=== PATIENT | male | born 1990 | race Caucasian/White ===

== ENCOUNTER 2017-11-14 13:16 | Emergency (ER) | payer MEDICAID, OTHER ==
[~2017-11-14] VITALS: Ht 177.8 cm; Wt 68.0 kg
[~2017-11-14 13:16] MED LIST: ALBU6.7H INH; ALBU8.5H8 IH; ALBU8HFA PO; INHA1EAC68 MC; PRED20TA PO
[2017-11-14] MEDS ORDERED: ondansetron/PF 4mg/2ml inj IV ONE (13:35)
[2017-11-14] MEDS ORDERED: normal saline 1000ml 1,000 ML IV ONE (13:35)
[2017-11-14 13:59] LABS: BASOPHILS % (AUTO) 0 % (0-1); EOSINOPHILS # (AUTO) 0.1 X10'3 (0-0.9); EOSINOPHILS % (AUTO) 1.1 % (0-6); HEMATOCRIT 46.8 % (42.0-52.0); HEMOGLOBIN 16.4 g/dl (14.0-17.9); LYMPHOCYTES # (AUTO) 0.5 X10'3 (1.1-4.8); LYMPHOCYTES % (AUTO) 3.8 % (21-51); MEAN CORPUSCULAR HEMOGLOBIN 31.5 PG (27.0-31.0); MEAN CORPUSCULAR HGB CONC 35.1 % (33.0-36.5); MEAN PLATELET VOLUME 7.5 FL (7.4-10.4); MONOCYTES # (AUTO) 0.5 X10'3 (0-0.9); MONOCYTES % (AUTO) 3.8 % (2-12); NEUTROPHILS # (AUTO) 11.9 X10'3 (1.8-7.7); NEUTROPHILS % (AUTO) 91.3 % (42-75); PLATELET COUNT 301 X10'3 (140-440); RED CELL DISTRIBUTION WIDTH 12.6 % (11.5-14.5)
[2017-11-14 14:06] LABS: CLARITY,URINE CLEAR (Clear); COLOR,URINE YELLOW (Yellow); GLUCOSE, URINE NEGATIVE (Neg); KETONES,URINE 40 mg/dl (Neg); LEUKOCYTE ESTERASE ,URINE NEGATIVE (Neg); NITRITES, URINE NEGATIVE (Neg); OCCULT BLOOD,URINE NEGATIVE (Neg); PROTEIN,URINE NEGATIVE (Neg); UROBILINOGEN,URINE 0.2 E.U/dL (0.2-1.0)
[2017-11-14 14:07] LABS: PROTHROMBIN TIME 10.3 SECONDS (9.0-12.0)
[2017-11-14] MEDS ORDERED: LORazepam 2 mg/ml vial IV ONE (14:10)
[2017-11-14] MEDS ORDERED: ketorolac trometh. 30mg/ml inj. IV ONE (14:10)
[2017-11-14] MEDS ORDERED: metoclopramide 5 mg/ml inj IV ONE (14:10)
[2017-11-14 14:13] LABS: ALANINE AMINOTRANSFERASE 49 U/L (12-78); ALBUMIN 4.4 G/DL (3.4-5.0); ALBUMIN/GLOBULIN RATIO 1.3 (1.1-1.5); ALKALINE PHOSPHATASE 60 IU/L (46-116); ANION GAP 17 (8-16); ASPARTATE AMINO TRANSFERASE 25 U/L (10-37); BILIRUBIN,TOTAL 2.4 MG/DL (0.1-1.0); BLOOD UREA NITROGEN 21 MG/DL (7-18); BUN/CREATININE RATIO 24.7 (5.4-32.0); CHLORIDE 104 MMOL/L (99-107); CREATININE 0.85 MG/DL (0.60-1.10); GLUCOSE 171 MG/DL (70-104); LIPASE 125 U/L (73-393); POTASSIUM 3.8 MMOL/L (3.5-5.1); SODIUM 141 MMOL/L (135-145); TOTAL CARBON DIOXIDE 19.9 MMOL/L (24-32); TOTAL PROTEIN 7.9 G/DL (6.4-8.2); eGFR > 90 ML/MIN
[2017-11-14 14:17] LABS: UA COLLECTION TYPE CLN CATCH MIDSTREAM
[2017-11-14] MEDS ORDERED: ONDA4TAB9 PO (14:57)
[2017-11-14 15:10] LABS: PLATELET ESTIMATE NORMAL; TOTAL CELLS COUNTED 100; TOXIC GRANULATION 1+; TOXIC VACUOLATION 2+
[2017-11-14 15:23] VITALS: BP 128/79
== END 2017-11-14 15:26 | disposition home or self-care (01) ==
LOC: ER 13:17
DX: R11.2 Nausea with vomiting, unspecified (principal); R19.7 Diarrhea, unspecified; E86.0 Dehydration; F12.90 Cannabis use, unspecified, uncomplicated; Z56.0 Unemployment, unspecified; Z79.899 Other long term (current) drug therapy
CPT/HCPCS: 36415; 80053; 81003; 83690; 85025; 85610; 96361; 96374; 96375; 99284; J1885; J2060; J2405; J2765; J7030

== ENCOUNTER 2018-04-22 09:21 | Emergency (ER) | payer MEDICAID, OTHER ==
[~2018-04-22] VITALS: Ht 177.8 cm; Wt 79.0 kg
[2018-04-22 09:24] VITALS: BP 138/79
[2018-04-22] MEDS ORDERED: HYDR28CR14 TOP (09:27)
[2018-04-22] MEDS ORDERED: METH4TAB3 PO (09:27)
[2018-04-22] MEDS ORDERED: triamcinolone acetonide 40mg/ml inj IM ONE (09:30)
== END 2018-04-22 09:57 | disposition home or self-care (01) ==
LOC: ER 09:22
DX: L23.7 Allergic contact dermatitis due to plants, except food (principal); J45.909 Unspecified asthma, uncomplicated; F12.90 Cannabis use, unspecified, uncomplicated; Z56.0 Unemployment, unspecified; Z79.899 Other long term (current) drug therapy
CPT/HCPCS: 96372; 99283; J3301

== ENCOUNTER 2019-05-19 22:25 | Emergency (ER) | payer OTHER ==
[~2019-05-19] VITALS: Ht 177.8 cm; Wt 90.9 kg
[~2019-05-19 22:25] MED LIST changes: -ALBU6.7H INH; +ALBU6.7H9 INH; +HYDR28CR14 TOP; +METH4TAB3 PO
[2019-05-19] MEDS ORDERED: ibuprofen tablet 400 MG TABLET PO ONE (23:10)
[2019-05-19] MEDS ORDERED: HYDROcodone/acetaminophen 10/325mg tab PO ONE (23:10)
[2019-05-19] MEDS ORDERED: ACET-3068 PO (23:43)
[2019-05-20 00:07] VITALS: BP 131/98
== END 2019-05-20 00:10 | disposition home or self-care (01) ==
LOC: ER 22:26
DX: M25.512 Pain in left shoulder (principal); J45.909 Unspecified asthma, uncomplicated; F12.90 Cannabis use, unspecified, uncomplicated; Z56.0 Unemployment, unspecified; Z79.899 Other long term (current) drug therapy
CPT/HCPCS: 29105; 73030; 99284

== ENCOUNTER 2020-02-12 06:16 | Emergency (ER) | payer OTHER ==
[~2020-02-12] VITALS: Ht 177.8 cm; Wt 90.9 kg
[2020-02-12] MEDS ORDERED: ondansetron/PF 4mg/2ml inj IV ONE (06:40)
[2020-02-12] MEDS ORDERED: normal saline 1000ML IV soln IVB ONE (06:40)
[2020-02-12] MEDS: morphine 4 MG/ML inj SYRINge IV PRN ×2 (07:13→08:35)
[2020-02-12] MEDS ORDERED: ketorolac trometh. 30mg/ml inj. IV ONE (07:20)
[2020-02-12 07:32] LABS: BASOPHILS % (AUTO) 0.2 % (0-1); EOSINOPHILS # (AUTO) 0.1 X10'3 (0-0.9); EOSINOPHILS % (AUTO) 0.5 % (0-6); HEMATOCRIT 41.6 % (42.0-52.0); HEMOGLOBIN 14.5 g/dl (14.0-17.9); LYMPHOCYTES % (AUTO) 11.9 % (21-51); MEAN CORPUSCULAR HEMOGLOBIN 32.5 PG (27.0-31.0); MEAN CORPUSCULAR HGB CONC 34.8 g/dL (33.0-36.5); MEAN CORPUSCULAR VOLUME 93.2 FL (78-98); MEAN PLATELET VOLUME 7.3 FL (7.4-10.4); MONOCYTES # (AUTO) 1.3 X10'3 (0-0.9); MONOCYTES % (AUTO) 7.7 % (2-12); NEUTROPHILS # (AUTO) 13.3 X10'3 (1.8-7.7); NEUTROPHILS % (AUTO) 79.7 % (42-75); PLATELET COUNT 340 X10'3 (140-440); RED BLOOD COUNT 4.47 X10'6 (4.70-6.10); WHITE BLOOD COUNT 16.6 X10'3 (4.5-11.0)
[2020-02-12 07:46] LABS: ALANINE AMINOTRANSFERASE 46 U/L (12-78); ALBUMIN 4.2 G/DL (3.4-5.0); ALBUMIN/GLOBULIN RATIO 1.2 (1.1-1.5); ALKALINE PHOSPHATASE 49 IU/L (46-116); AMYLASE 57 U/L (25-115); ANION GAP 11 (8-16); ASPARTATE AMINO TRANSFERASE 16 U/L (10-37); BLOOD UREA NITROGEN 20 MG/DL (7-18); BUN/CREATININE RATIO 18.2 (5.4-32.0); CALCIUM 8.6 MG/DL (8.5-10.1); CHLORIDE 106 MMOL/L (99-107); GLUCOSE 139 MG/DL (70-104); LIPASE 107 U/L (73-393); POTASSIUM 3.4 MMOL/L (3.5-5.1); SODIUM 142 MMOL/L (135-145); TOTAL CARBON DIOXIDE 25.4 MMOL/L (24-32); TOTAL PROTEIN 7.6 G/DL (6.4-8.2); eGFR 79 ML/MIN
[2020-02-12] MEDS ORDERED: ONDA4TAB6 PO (07:55)
[2020-02-12] MEDS ORDERED: HYDR-4353 PO (07:55)
[2020-02-12] MEDS ORDERED: IBUP-1986 PO (07:55)
[2020-02-12] MEDS ORDERED: HYDROcodone/acetaminophen 10/325mg tab PO ONE (07:55)
[2020-02-12 08:09] VITALS: BP 189/137
[2020-02-12 08:18] LABS: CLARITY,URINE CLEAR (Clear); COLOR,URINE YELLOW (Yellow); GLUCOSE, URINE NEGATIVE (Neg); KETONES,URINE NEGATIVE (Neg); LEUKOCYTE ESTERASE ,URINE NEGATIVE (Neg); NITRITES, URINE NEGATIVE (Neg); OCCULT BLOOD,URINE TRACE-INTACT (Neg); PROTEIN,URINE NEGATIVE (Neg); UROBILINOGEN,URINE 0.2 E.U/dL (0.2-1.0)
[2020-02-12 08:19] LABS: UA COLLECTION TYPE URINAL
[2020-02-12 08:23] LABS: BACTERIA,URINE NONE SEEN /HPF (Neg); MUCUS STRANDS NONE SEEN /LPF (Neg); RBC,URINE 0-2 /HPF (0-2); SQUAMOUS EPITHELIAL CELL,UR NONE SEEN /LPF (FEW); WBC,URINE NONE SEEN /HPF (0-4)
== END 2020-02-12 09:02 | disposition home or self-care (01) ==
LOC: ER 06:16
DX: N20.1 Calculus of ureter (principal); N23 Unspecified renal colic; M54.5 Low back pain; J45.909 Unspecified asthma, uncomplicated; F12.90 Cannabis use, unspecified, uncomplicated; Z56.0 Unemployment, unspecified; Z79.899 Other long term (current) drug therapy
CPT/HCPCS: 36415; 74176; 80053; 81001; 82150; 83690; 85025; 96361; 96374; 96375; 96376; 99284; J1885; J2270; J2405; J7030